=== PATIENT | female | born 1945 | race Caucasian/White ===

== ENCOUNTER → 2018-08-19 | Outpatient (CLI) | payer OTHER ==
[~2018-08-19] MED LIST: ALPR0.254 PO; ALPR0.5T6 PO; ASCO10004 PO; ASPI-496 PO; CALC250T PO; CHOL200024 PO; CINN1CAP PO; COLO500C PO; DIPH25CA61 PO; DOCU-131 PO; ENOX100S5 SQ; FURO-92 PO; GLIP5TAB10 PO; GLUC-121 PO; HYDR-3240 PO; LIRA0.6P SQ-INSULIN; LISI5TAB7 PO; LOSA50TA7 PO; LOSARTAN PO; MAGN300C PO; MAGN400T7 PO; METO25TA2 PO; METO25TA35 PO; MULT-717 PO; OMEG-14 PO; OMEG1CAP23 PO; OMEP-110 PO; PROM25TA10 PO; UBID50TA3 PO; VERA180T56 PO; WARF2.5T PO; WARF5TAB PO; [UNRECOGNIZED DRUG - CODE] PO; tylenol pm PO
[2018-08-19 12:50] LABS: ALBUMIN 3.8 g/dL (3.4-5.0); ANION GAP 6 mmol/L (5-15); CALCIUM 8.8 mg/dL (8.5-10.1); CHLORIDE 103 mmol/L (98-107)
[2018-08-19 12:54] LABS: ALANINE AMINOTRANSFERASE 107 U/L (12-78); ALKALINE PHOSPHATASE 145 U/L (45-117); BILIRUBIN,TOTAL 0.6 mg/dL (0.2-1.0); CREATININE 0.99 mg/dL (0.55-1.02); TOTAL PROTEIN 7.4 g/dL (6.4-8.2)
== END | disposition home or self-care (01) ==
LOC: STAR 11:31
PROVIDERS: ATTEND Internal Medicine Gastroenterology
DX: Z01.818 Encounter for other preprocedural examination (principal); K22.70 Barrett's esophagus without dysplasia; Z88.1 Allergy status to other antibiotic agents; Z88.5 Allergy status to narcotic agent
CPT/HCPCS: 36415; 80053; 93005

== ENCOUNTER 2018-08-25 12:24 | Day surgery (SDC) | payer OTHER ==
[~2018-08-25] VITALS: Ht 160 cm; Wt 89.7 kg
[2018-08-25] MEDS ORDERED: LIDOCAINE-MPF 1%, 2ML INFIL ONE (13:00)
[2018-08-25] MEDS ORDERED: LACTATED RINGERS 1,000 ML IV SCH (13:00)
[2018-08-25 13:04] VITALS: BP 127/79
[2018-08-25] MEDS ORDERED: PROPOFOL 10 MG/ML, 20ML ONE (14:26)
[2018-08-25] MEDS ORDERED: ACETAMINOPHEN 325 MG TABLET PO PRN (15:00)
[2018-08-25] MEDS ORDERED: ONDANSETRON ODT 8 MG PO PRN (15:00)
[2018-08-25] MEDS ORDERED: OXYcodone 5 MG/5 ML ORAL.SOL UDC PO PRN (15:00)
[2018-08-25] MEDS ORDERED: FENTANYL PF 100 MCG/2ML IV PRN (15:00)
[2018-08-25] MEDS ORDERED: HYDROmorphone 1 MG/ML, 1ML IV PRN (15:00)
[2018-08-25] MEDS ORDERED: ONDANSETRON 2MG/ML, 2ML IV PRN (15:00)
== END 2018-08-25 16:10 | disposition home or self-care (01) ==
LOC: OUT 12:24
PROVIDERS: ATTEND Internal Medicine
DX: K22.8 Other specified diseases of esophagus (principal); K21.9 Gastro-esophageal reflux disease without esophagitis; I25.10 Atherosclerotic heart disease of native coronary artery without angina pectoris; E11.9 Type 2 diabetes mellitus without complications; I10 Essential (primary) hypertension; M19.90 Unspecified osteoarthritis, unspecified site; Z95.810 Presence of automatic (implantable) cardiac defibrillator; Z79.01 Long term (current) use of anticoagulants; Z79.82 Long term (current) use of aspirin; Z79.84 Long term (current) use of oral hypoglycemic drugs; Z79.899 Other long term (current) drug therapy; Z88.5 Allergy status to narcotic agent; Z88.0 Allergy status to penicillin; Z88.8 Allergy status to other drugs, medicaments and biological substances; Z87.891 Personal history of nicotine dependence; Z95.2 Presence of prosthetic heart valve; Z83.3 Family history of diabetes mellitus; Z82.49 Family history of ischemic heart disease and other diseases of the circulatory system; Z80.42 Family history of malignant neoplasm of prostate
CPT/HCPCS: 43239; 82962; 88305; J2704; J7120

== ENCOUNTER 2018-11-22 14:55 | Emergency (ER) | payer MEDICARE, OTHER ==
[~2018-11-22] VITALS: Ht 160 cm; Wt 87.8 kg
[~2018-11-22 14:55] MED LIST changes: +LOSA50TA14 PO; -LOSA50TA7 PO
[2018-11-22 16:08] LABS: BASOPHILS # (AUTO) 0.02 x10^3/uL (0-0.1); BASOPHILS % (AUTO) 0 % (0-1); EOSINOPHILS # (AUTO) 0.08 x10^3/uL (0-0.4); EOSINOPHILS % (AUTO) 1 % (1-7); LYMPHOCYTES # (AUTO) 0.81 x10^3/uL (1-3.4); LYMPHOCYTES % (AUTO) 8 % (22-44); MD NO; MEAN CORPUSCULAR HEMOGLOBIN 30.5 pg (27.0-34.8); MEAN CORPUSCULAR HGB CONC 34.7 g/dL (32.4-35.8); MEAN CORPUSCULAR VOLUME 87.8 fL (80-100); MEAN PLATELET VOLUME 9.8 fL (7.4-10.4); MONOCYTES # (AUTO) 0.43 x10^3/uL (0.2-0.8); MONOCYTES % (AUTO) 4 % (2-9); NEUTROPHILS # (AUTO) 8.37 x10^3/uL (1.8-6.8); NEUTROPHILS % (AUTO) 86 % (42-75); PLATELET COUNT 167 x10^3/uL (130-400); RED BLOOD COUNT 5.43 x10^6/uL (3.82-5.3); RED CELL DISTRIBUTION WIDTH 13.4 % (9.6-15.2)
[2018-11-22 16:16] LABS: ALBUMIN 3.7 g/dL (3.4-5.0); ANION GAP 5 mmol/L (5-15); CALCIUM 8.7 mg/dL (8.5-10.1); CHLORIDE 102 mmol/L (98-107)
[2018-11-22 16:22] LABS: ALANINE AMINOTRANSFERASE 71 U/L (12-78); ALKALINE PHOSPHATASE 144 U/L (45-117); BILIRUBIN,TOTAL 0.7 mg/dL (0.2-1.0); TOTAL PROTEIN 7.5 g/dL (6.4-8.2); TROPONIN I < 0.015 ng/mL (0.000-0.045)
--- NOTE | 2018-11-22 19:22 | NUR ---
NAZARIO COOK AT BEDSIDE
[2018-11-22] MEDS ORDERED: MECLIZINE CHEWABLE 25 MG TAB PO ONE (19:30)
[2018-11-22] MEDS ORDERED: ONDANSETRON ODT 8 MG PO ONE (19:30)
[2018-11-22] MEDS ORDERED: MECLIZINE CHEWABLE 25 MG TAB ONE (19:41)
[2018-11-22] MEDS ORDERED: ONDANSETRON ODT 8 MG ONE (19:41)
--- NOTE | 2018-11-22 19:50 | NUR ---
PT MEDICATED PER EMAR
--- NOTE | 2018-11-22 19:54 | NUR ---
PT AMBULATED TO BATHROOM WITH STEADY GAIT
[2018-11-22 19:55] LABS: MICROSCOPIC NOT IND
[2018-11-22 20:05] LABS: CULTURE INDICATED? NO
[2018-11-22 20:11] LABS: INTERNATIONAL NORMALIZED RATIO 2.15 (0.93-1.1); PROTHROMBIN TIME 22.1 Seconds (9.6-11.5)
[2018-11-22 20:16] LABS: TROPONIN I < 0.015 ng/mL (0.000-0.045)
--- NOTE | 2018-11-22 20:52 | NUR ---
PT'S CHART UP FOR RECHECK
[2018-11-22 21:44] VITALS: BP 121/44
== END 2018-11-22 22:13 | disposition home or self-care (01) ==
LOC: ED 19:39
DX: R42 Dizziness and giddiness (principal); R11.0 Nausea; R73.9 Hyperglycemia, unspecified; K21.9 Gastro-esophageal reflux disease without esophagitis; I48.91 Unspecified atrial fibrillation; I10 Essential (primary) hypertension; F41.1 Generalized anxiety disorder; Z95.0 Presence of cardiac pacemaker
CPT/HCPCS: 36415; 70450; 71045; 80053; 81003; 83690; 84484; 85025; 85610; 85730; 93005; 99284; Q0162

== ENCOUNTER 2019-10-10 18:22 | Emergency (ER) | payer MEDICARE ==
[~2019-10-10] VITALS: Ht 160 cm; Wt 80.9 kg
[~2019-10-10 18:22] MED LIST changes: -MAGN400T7 PO; +MAGN400T9 PO; -VERA180T56 PO; +VERA180T6 PO
[2019-10-10] MEDS ORDERED: LIDOCAINE-MPF 1%, 5ML INFIL ONE (19:00)
[2019-10-10] MEDS ORDERED: LIDOCAINE-MPF 1%, 5ML ONE (22:18)
[2019-10-10] MEDS ORDERED: NEOSPORIN OINT. PKT 1 PACKET ONE (22:18)
[2019-10-10 23:34] VITALS: BP 108/68
== END 2019-10-10 23:37 | disposition home or self-care (01) ==
LOC: ED 23:31
DX: S61.412A Laceration without foreign body of left hand, initial encounter (principal); S09.90XA Unspecified injury of head, initial encounter; S00.33XA Contusion of nose, initial encounter; I10 Essential (primary) hypertension; M50.30 Other cervical disc degeneration, unspecified cervical region; R73.9 Hyperglycemia, unspecified; W01.0XXA Fall on same level from slipping, tripping and stumbling without subsequent striking against object, initial encounter; Y93.89 Activity, other specified; Y92.89 Other specified places as the place of occurrence of the external cause; Y99.8 Other external cause status
CPT/HCPCS: 12002; 70450; 70486; 72125; 99284

== ENCOUNTER 2020-03-30 10:06 | Day surgery (SDC) | payer MEDICARE ==
[~2020-03-30] VITALS: Ht 160 cm; Wt 77.8 kg
[~2020-03-30 10:06] MED LIST changes: -WARF2.5T PO; +WARF2.5T2 PO; -WARF5TAB PO; +WARF5TAB2 PO
[2020-03-30] MEDS ORDERED: SODIUM CHLORIDE 0.9% 1,000 ML IV SCH (10:24)
[2020-03-30] MEDS ORDERED: VANCOMYCIN PMX 1GM/200ML 200 ML IVPB SCH (10:30)
[2020-03-30] MEDS ORDERED: EMPA25TA PO (10:34)
[2020-03-30] MEDS ORDERED: FENU500C PO (10:57)
[2020-03-30] MEDS ORDERED: CINN500C2 PO (10:57)
[2020-03-30] MEDS ORDERED: POLY17PO5 PO (10:57)
[2020-03-30] MEDS ORDERED: COLO500C PO (10:57)
[2020-03-30] MEDS ORDERED: Aloe Vera PO (10:57)
[2020-03-30 10:59] VITALS: BP 112/68
[2020-03-30] MEDS ORDERED: MIDAZOLAM 1 MG/ML, 5ML ONE (10:59)
[2020-03-30] MEDS ORDERED: FENTANYL PF 100 MCG/2ML ONE (10:59)
[2020-03-30] MEDS ORDERED: VANCOMYCIN 500 MG ONE (10:59)
[2020-03-30] MEDS ORDERED: LIDOCAINE 2%, 20ML ONE (11:00)
[2020-03-30] MEDS ORDERED: VANCOMYCIN PMX 1GM/200ML 200 ML ONE (11:00)
[2020-03-30] MEDS ORDERED: PLEASE ENTER HEIGHT AND WEIGHT MC SCH (11:00)
[2020-03-30 11:15] LABS: BASOPHILS # (AUTO) 0.02 x10^3/uL (0-0.1); BASOPHILS % (AUTO) 0 % (0-1); EOSINOPHILS # (AUTO) 0.13 x10^3/uL (0-0.4); EOSINOPHILS % (AUTO) 2 % (1-7); LYMPHOCYTES # (AUTO) 2.54 x10^3/uL (1-3.4); LYMPHOCYTES % (AUTO) 37 % (22-44); MD NO; MEAN CORPUSCULAR HEMOGLOBIN 29.9 pg (27.0-34.8); MEAN CORPUSCULAR HGB CONC 33.6 g/dL (32.4-35.8); MEAN CORPUSCULAR VOLUME 88.8 fL (80-100); MEAN PLATELET VOLUME 9.6 fL (7.4-10.4); MONOCYTES # (AUTO) 0.55 x10^3/uL (0.2-0.8); MONOCYTES % (AUTO) 8 % (2-9); NEUTROPHILS # (AUTO) 3.63 x10^3/uL (1.8-6.8); NEUTROPHILS % (AUTO) 53 % (42-75); PLATELET COUNT 181 x10^3/uL (130-400); RED BLOOD COUNT 5.07 x10^6/uL (3.82-5.3); RED CELL DISTRIBUTION WIDTH 13.5 % (9.6-15.2)
[2020-03-30 11:20] LABS: INTERNATIONAL NORMALIZED RATIO 1.01 (0.93-1.1); PROTHROMBIN TIME 10.7 Seconds (9.6-11.5)
[2020-03-30 11:22] LABS: ANION GAP 6 mmol/L (5-15); CALCIUM 9.5 mg/dL (8.5-10.1); CHLORIDE 105 mmol/L (98-107); CREATININE 0.78 mg/dL (0.55-1.02)
[2020-03-30] MEDS ORDERED: ACETAMINOPHEN 325 MG TABLET PO PRN (12:30)
[2020-03-30] MEDS ORDERED: HOLD MEDICATION MC PRN (12:30)
[2020-03-30] MEDS ORDERED: SODIUM CHLORIDE FLUSH 10ML SYR IVF SCH (21:00)
== END 2020-03-30 13:50 | disposition home or self-care (01) ==
LOC: CACL 10:06
PROVIDERS: ATTEND Internal Medicine Cardiovascular Disease
DX: Z45.02 Encounter for adjustment and management of automatic implantable cardiac defibrillator (principal); I42.1 Obstructive hypertrophic cardiomyopathy; I10 Essential (primary) hypertension; I48.0 Paroxysmal atrial fibrillation; E11.9 Type 2 diabetes mellitus without complications; E66.3 Overweight; Z68.30 Body mass index [BMI] 30.0-30.9, adult; Z79.01 Long term (current) use of anticoagulants; Z79.82 Long term (current) use of aspirin; Z79.84 Long term (current) use of oral hypoglycemic drugs; Z79.899 Other long term (current) drug therapy; Z87.891 Personal history of nicotine dependence; Z88.0 Allergy status to penicillin; Z88.5 Allergy status to narcotic agent; Z95.2 Presence of prosthetic heart valve
CPT/HCPCS: 33263; 36415; 71046; 80048; 85025; 85610; 93005; 99156; 99157; C1721; J2250; J3010; J3370